=== PATIENT | female | born 1955 | race Caucasian/White ===

== ENCOUNTER 2018-09-06 15:54 | Emergency (ER) | payer OTHER ==
[~2018-09-06] VITALS: Ht 167.6 cm; Wt 101.5 kg
[2018-09-06 17:12] VITALS: Ht 167.6 cm; Wt 101.5 kg
[2018-09-06] MEDS ORDERED: ONDANSETRON 4 MG INJ IV STA (19:23)
[2018-09-06] MEDS ORDERED: SOD CHLORIDE 0.9% 2,000 ML IV STA (19:23)
[2018-09-06] MEDS ORDERED: morphine 4 MG/ML VIAL IV STA (19:23)
--- NOTE | 2018-09-06 19:31 | ERD ---
ER Documentation Chief Complaint Chief Complaint Complains of abdominal pain and vomiting x 2 days HPI 62-year-old female with a history of hypertension presenting with complaints of generalized abdominal pain with vomiting and diarrhea that started at 3 AM today. Last night she ate lobster and steak at [employer]. She woke up at 3 AM with nonbloody and nonbilious vomiting. She has had multiple episodes of vomiting and diarrhea that have been nonbloody. She has had some chills as well. She describes her pain as aching, generalized, intermittent, with no alleviating or exacerbating factors. ROS All systems reviewed and are negative except as per history of present illness. Medications Home Meds Active Scripts Loperamide Hcl* (Imodium*) 2 Mg Capsule, 2 MG PO .AFTER EA LOOSE BM PRN for DIARRHEA, #10 TAB Prov:GIDEON BLAKELY MD 09/06/18 Ondansetron (Ondansetron Odt) 4 Mg Tab.rapdis, 4 MG PO Q6H PRN for NAUSEA AND/OR VOMITING, #10 TAB Prov:GIDEON BLAKELY MD 09/06/18 Allergies Allergies: Coded Allergies: No Known Allergy (Unverified , 09/06/18) PMhx/Soc History of Surgery: Yes (Bladder reconstruct 1997) Anesthesia Reaction: No Hx Neurological Disorder: No Hx Respiratory Disorders: No Hx Cardiac Disorders: Yes (HTN) Hx Psychiatric Problems: No Hx Miscellaneous Medical Probl: No Hx Alcohol Use: No Hx Substance Use: No Hx Tobacco Use: No Smoking Status: Never smoker FmHx Family History: No diabetes Physical Exam Vitals Vital Signs Date Temp Pulse Resp B/P (MAP) Pulse Ox O2 O2 Flow FiO2 Time Delivery Rate 09/06/18 99.0 87 16 170/89 99 Room Air 21:05 (116) 09/06/18 99.5 20:52 09/06/18 100.9 86 20 160/84 97 Room Air 19:24 (109) 09/06/18 100.9 98 20 177/91 96 17:12 (119) Physical Exam Const: No acute distress, well-appearing, nontoxic Head: Atraumatic Eyes: Normal Conjunctiva ENT: Normal External Ears, Nose and Mouth. Dry mucous membranes Neck: Full range of motion. No meningismus. Resp: Clear to auscultation bilaterally Cardio: Regular rate and rhythm, no murmurs Abd: Soft, non tender, non distended. No masses. No rebound or guarding. Normal bowel sounds Skin: No petechiae or rashes Back: No midline or flank tenderness Ext: No cyanosis, or edema Neur: Awake and alert Psych: Normal Mood and Affect Result Diagram: 09/06/18193609/06/181936 Results 24 hrs Laboratory Tests Test 09/06/18 19:37 White Blood Count 9.1 10^3/ul Red Blood Count 5.39 10^6/ul Hemoglobin 16.3 g/dl Hematocrit 48.3 % Mean Corpuscular Volume 89.6 fl Mean Corpuscular Hemoglobin 30.2 pg Mean Corpuscular Hemoglobin Concent 33.7 g/dl Red Cell Distribution Width 12.6 % Platelet Count 124 10^3/UL Mean Platelet Volume 12.9 fl Immature Granulocytes % 0.300 % Neutrophils % 90.3 % Lymphocytes % 3.3 % Monocytes % 6.0 % Eosinophils % 0.0 % Basophils % 0.1 % Nucleated Red Blood Cells % 0.0 /100WBC Immature Granulocytes # 0.030 10^3/ul Neutrophils # 8.2 10^3/ul Lymphocytes # 0.3 10^3/ul Monocytes # 0.5 10^3/ul Eosinophils # 0.0 10^3/ul Basophils # 0.0 10^3/ul Nucleated Red Blood Cells # 0.0 10^3/ul Sodium Level 142 mmol/L Potassium Level 3.8 mmol/L Chloride Level 102 mmol/L Carbon Dioxide Level 27 mmol/L Anion Gap 13 Blood Urea Nitrogen 21 mg/dl Creatinine 0.79 mg/dl Est Glomerular Filtrat Rate mL/min > 60 mL/min Glucose Level 125 mg/dl Calcium Level 9.9 mg/dl Total Bilirubin 0.9 mg/dl Direct Bilirubin 0.00 mg/dl Indirect Bilirubin 0.9 mg/dl Aspartate Amino Transf (AST/SGOT) 64 IU/L Alanine Aminotransferase (ALT/SGPT) 49 IU/L Alkaline Phosphatase 130 IU/L Total Protein 9.1 g/dl Albumin 4.9 g/dl Globulin 4.20 g/dl Albumin/Globulin Ratio 1.16 Lipase 59 U/L Current Medications Medications Dose Sig/Humaira Start Time Status Last (Trade) Ordered Route PRN Stop Time Admin Dose Reason Admin Sodium 2,000 ml @ Q2H STAT 09/06/18 DC 09/06/18 Chloride 1,000 mls/hr IV 19:23 19:57 09/06/18 21:08 Morphine 4 mg ONCE STAT 09/06/18 DC 09/06/18 Sulfate IV 19:23 19:56 (morphine) 09/06/18 19:25 Ondansetron 4 mg ONCE STAT 09/06/18 DC 09/06/18 HCl (Zofran IV 19: 19:56 Inj) 09/06/18 19:25 1,000 mg ONCE STAT 09/06/18 DC 09/06/18 Acetaminophen PO 20:46 20:52 (Tylenol 09/06/18 20:47 Tab) Procedures/MDM EMERGENT LABS AND DIAGNOSTIC STUDIES: Lab Results above were reviewed and interpreted by me. CBC: Slightly elevated hemoglobin, likely secondary to hemoconcentration from dehydration. No leukocytosis or evidence of infection. Mild thrombocytopenia of unclear etiology CMP: Mild BUN elevation, likely prerenal azotemia from dehydration. No evidence of electrolyte abnormality, renal failure, hypoglycemia, liver failure, or biliary obstruction Lipase: no evidence of pancreatitis Initial Nursing notes reviewed. Previous Medical Records requested via the Electronic Health Record. EMERGENCY DEPARTMENT COURSE / MEDICAL DECISION MAKING: Patient presents with generalized abdominal pain with vomiting and diarrhea for the past 1 day. Vitals were notable for low-grade fever and mild tachycardia. I have a low suspicion for ed to small bowel obstruction, perforated viscous, constipation, volvulus, colitis, or UTI. Blood work did not show any significant abnormalities other than signs of dehydration. Patient was treated with 2 L of IV fluids, pain medications, and antiemetics. Exam is not consistent with acute surgical abdomen. She is likely suffering from gastroenteritis secondary to possible food poisoning. Upon reevaluation, the patient's symptoms have improved and she remains hemodynamically stable. I recommended outpatient treatment with antiemetics and antidiarrheals as needed for her symptoms. Return precautions were discussed. Patient's blood pressure was elevated (>120/80) but appears stable without evidence of hypertensive emergency or urgency. The patient was counseled about the risks of hypertension and urged to pursue outpatient monitoring and therapy within a week with their primary care physician. Departure Diagnosis: Primary Impression: Abdominal pain Abdominal location: generalized Qualified Codes: R10.84 - Generalized abdominal pain Additional Impressions: Nausea vomiting and diarrhea Dehydration Condition: Stable EKGIDEON NAZARIO MD Sep 06, 2018 19:31
[2018-09-06] MEDS ORDERED: ACETAMINOPHEN 500 MG TAB PO STA (20:46)
[2018-09-06] MEDS ORDERED: LOPE2CAP PO (20:48)
[2018-09-06] MEDS ORDERED: ONDA4TAB14 PO (20:48)
[2018-09-06 21:05] VITALS: BP 170/89; PULSE 87; RESP 16
== END 2018-09-06 21:08 | disposition home or self-care (01) ==
LOC: E/R 15:54
DX: R10.84 Generalized abdominal pain (principal); R11.2 Nausea with vomiting, unspecified; R19.7 Diarrhea, unspecified; E86.0 Dehydration; I10 Essential (primary) hypertension
CPT/HCPCS: 36415; 80053; 83690; 85025; 96361; 96374; 96375; 99284; J2270; J2405; J7030